=== PATIENT | male | born 1995 | race Caucasian/White ===

== ENCOUNTER 2019-03-21 19:11 | Emergency (ER) | payer MEDICARE, MEDICAID ==
[~2019-03-21] VITALS: Ht 177.8 cm; Wt 59.1 kg
[~2019-03-21 19:11] MED LIST: LORA10TA75 PO; NASOCORT NS; RISP2TAB3 PO; SERT50TA PO
[2019-03-21 19:33] VITALS: BP 126/81
[2019-03-21] MEDS ORDERED: GUAN1TAB PO (19:56)
[2019-03-21] MEDS ORDERED: SERT100T32 PO (19:58)
[2019-03-21] MEDS ORDERED: ZONI100C2 PO (19:59)
== END 2019-03-21 20:44 | disposition home or self-care (01) ==
LOC: ED 20:38
DX: F41.1 Generalized anxiety disorder (principal); F98.9 Unspecified behavioral and emotional disorders with onset usually occurring in childhood and adolescence
CPT/HCPCS: 99283